=== PATIENT | male | born 1975 ===

== ENCOUNTER 2024-11-08 16:02 | Outpatient (CLI) | payer BC | END 2024-11-08 17:00 | disposition home or self-care (01) | LOC: Rad HDHVI 16:02 | PROVIDERS: ATTEND Internal Medicine Cardiovascular Disease | DX: I11.9 Hypertensive heart disease without heart failure (principal) | CPT/HCPCS: 93306 ==

== ENCOUNTER 2024-11-09 09:31 | Outpatient (CLI) | payer BC ==
[~2024-11-09] VITALS: Ht 188 cm; Wt 124.7 kg
== END 2024-11-09 17:00 | disposition home or self-care (01) ==
LOC: Rad HDHVI 09:31
PROVIDERS: ATTEND Internal Medicine Cardiovascular Disease
DX: I49.1 Atrial premature depolarization (principal); I49.3 Ventricular premature depolarization; R00.0 Tachycardia, unspecified; Z13.6 Encounter for screening for cardiovascular disorders; I10 Essential (primary) hypertension; R22.43 Localized swelling, mass and lump, lower limb, bilateral
CPT/HCPCS: 78452; 93017; A9500; 96374